=== PATIENT | male | born 1975 | race Caucasian/White ===

== ENCOUNTER 2017-01-30 14:23 | Emergency (ER) | payer MEDICAID ==
[2017-01-30 14:28] VITALS: BP 118/75; BMI 20.9
--- NOTE | 2017-01-30 15:29 | RAD ---
HISTORY: Hand swelling from trauma. Hand was crashed under a pole. Study: Three-view right hand Comparison: No priors Findings: There is a closed, impacted transverse fracture of the d shaft of the right 5th metacarpal with angu lation , convex dorsally. Overlying soft tissue swelling is observed . Remainder of osseous structur es are intact . There is a 2 millimeter metallic foreign body present within the dorsal soft tissues overlying the distal portion of the proximal phalanx of the right middle finger. IMPRESSION: Boxer's fracture of the right 5th metacarpal. This appears to be impacted and angulated but closed. Reported By:
--- NOTE | 2017-01-30 16:01 | DR.GENAD ---
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 swelling noted - Source History Provided: Patient - Mode of Arrival Mode of Arrival: Ambulatory - Timing Onset of Chief Complaint: 01/28/17 PMH - PMH Past Medical History: No Past Surgical History: No - Family History History of Family Medical Conditions: No - Social History Does patient currently use any type of tobacco product: Yes Have you used tobacco products in the last 12 months: Yes Type of Tobacco Use: Cigarettes How many years tobacco product used: 20 Does any household member use tobacco: Yes Alcohol Use: None Do you use any recreational Drugs:: No Lives With: Family Lives Where: Home - infectious screening In the last 2 months have you had wt loss of >10#?: NO Have you had fever, night sweats or hemotysis?: No Have you traveled outside the country in the last 6 months?: No Isolation: Standard ROS - Review of Systems Eyes: No Symptoms Reported ENTM: No Symptoms Reported Respiratoy: No Symptoms Reported Cardiovascular: No Symptoms Reported Gastrointestinal/Abdominal: No Symptoms Reported Genitourinary: No Symptoms Reported Neurological: No Symptoms Reported Musculoskeletal: No Symptoms Reported Integumentary: No Symptoms Reported Hematologic/Lymphatic: No Symptoms Reported Endocrine: No Symptoms Reported Psychiatric: No Symptoms Reported All Other Systems: Reviewed and Negative PE - Vital Signs Vitals: Temperature 98.7 F Pulse Rate 75 Respiratory Rate 16 Blood Pressure 118/75 O2 Sat by Pulse Oximetry 100 - General Limitations: No Limitations General Appearance: Alert - Head Head Exam: Normal Inspection - Eyes Eye exam: Normal Appearance, PERRL, EOMI - ENT ENT Exam: Normal Exam External Ear Exam: Normal External Inspection TM/Canal Exam: Bilateral Normal Nose Exam: Normal Nose Exam Mouth Exam: Normal Inspection Throat Exam: Normal Inspection - Neck Neck Exam: Normal Inspection, Full ROM - Chest Chest Inspection: Normal Inspection - Respiratory Respiratory Exam: Normal Lung Sounds Bilat Respiratory Exam: Bilateral Clear to Auscultation - Cardiovascular Cardiovascular Exam: Regular Rate, Normal Rhythm - Abdominal Exam Abdominal Exam: Normal Inspection, Normal Bowel Sounds Abdominal Tenderness: negative: RUQ, RLQ, LUQ, LLQ, Epigastrium, Suprapubic, Diffuse, Mild, Moderate, Severe, Other - Extremities Extremities Exam: Edema, Other (two areas of tissure puncture dorsum of hand) - Back Back Exam: Normal Inspection, Full ROM - Neurologic Neurological Exam: Alert, Oriented X3, CN II-XII Intact - Psychiatric Psychiatric Exam: Normal Affect, Normal Mood - Skin Skin Exam: Warm, Dry, Intact ROR - XRAY XRAY Interpreted by: Radiologist (There is a closed impacted transverse fracture of the dorsal shaft of the right 5th metarcarpal with angulation, convex dorsally. Overlying soft tissue swelling is observed. Remainder of osseous structures are intact. There is a 2 mm metallic foreign body present within the dorsal soft tissues overlying the distal portion of the proximal phalanx of the right middle finger. Impression: Boxer's fracture of the right 5th metacarpal. This appears to be impacted and angulated but closed.) - Diagnosis Discharge Problem: Boxer's fracture Qualifiers: Encounter type: initial encounter Fracture type: closed Qualified Code(s): S62.309A - Unspecified fracture of unspecified metacarpal bone, initial encounter for closed fracture - Discharge Plan Condition: Stable - Follow ups/Referrals Follow ups/Referrals: NFD,None [Primary Care Provider] - 3 days - Instructions
== END 2017-01-30 16:28 | disposition home or self-care (01) ==
LOC: ER 14:23
DX: S62.309A Unspecified fracture of unspecified metacarpal bone, initial encounter for closed fracture (principal); Y33.XXXA Other specified events, undetermined intent, initial encounter; Y92.9 Unspecified place or not applicable
CPT/HCPCS: 73130; 99282

== ENCOUNTER 2017-03-22 15:25 | Emergency (ER) | payer MEDICAID, OTHER ==
[2017-03-22 15:37] VITALS: BP 112/71; BMI 22.3
--- NOTE | 2017-03-22 16:06 | DR.EXTPAIN ---
HPI - Time seen Time seen: 03:55 - PCP Primary Care Physician: NFD - Complaint/Symptoms Chief Complaint:: PT C/O SWELLING TO HIS LLE THAT STARTED A FEW DAYS AGO AND AND PT THINKS IT MAY BE A SPIDER BITE.. Self Treatment fo Chief Complaint: ASPERCREAM - Source History Provided: Patient - Mode of arrival Mode of Arrival: Ambulatory - Timing Onset of Chief Complaint: 03/19/17 PMH - PMH Past Medical History: No Past Surgical History: No - Family History History of Family Medical Conditions: No - Social History Does patient currently use any type of tobacco product: Yes Have you used tobacco products in the last 12 months: Yes Type of Tobacco Use: Cigarettes How many years tobacco product used: 23 Does any household member use tobacco: No Alcohol Use: None Do you use any recreational Drugs:: No Lives With: Family Lives Where: Home - infectious screening In the last 2 months have you had wt loss of >10#?: NO Have you had fever, night sweats or hemotysis?: No Have you traveled outside the country in the last 6 months?: No Isolation: Standard ROS - Review of Systems Eyes: No Symptoms Reported ENTM: No Symptoms Reported Respiratoy: No Symptoms Reported Cardiovascular: No Symptoms Reported Gastrointestinal/Abdominal: No Symptoms Reported Genitourinary: No Symptoms Reported Neurological: No Symptoms Reported Musculoskeletal: No Symptoms Reported Integumentary: Change in Color, Lesions (erythema, multiple bites) Hematologic/Lymphatic: No Symptoms Reported Endocrine: No Symptoms Reported Psychiatric: No Symptoms Reported All Other Systems: Reviewed and Negative PE - Vital Signs Vitals: Temperature 98.1 F Pulse Rate 91 Respiratory Rate 22 Blood Pressure 112/71 O2 Sat by Pulse Oximetry 99 - General Limitations: No Limitations General Appearance: Alert, In No Apparent Distress - Head Head Exam: Normal Inspection, Atraumatic - Eyes Eye exam: Normal Appearance, PERRL, EOMI - ENT ENT Exam: Normal Exam - Neck Neck Exam: Normal Inspection, Full ROM - Chest Chest Inspection: Normal Inspection - Respiratory Respiratory Exam: Normal Lung Sounds Bilat Respiratory Exam: Bilateral Clear to Auscultation - Cardiovascular Cardiovascular Exam: Regular Rate, Normal Rhythm - Abdominal Exam Abdominal Exam: Normal Inspection Abdominal Tenderness: negative: RUQ, RLQ, LUQ, LLQ, Epigastrium, Suprapubic, Diffuse, Mild, Moderate, Severe, Other - Extremities Extremities Exam: negative: Normal Inspection, Full ROM, Tenderness, Normal Capillary Refill, Edema, Joint Swelling, Calf Tenderness, Other - Upper Extremities Shoulder Exam: Normal Inspection Arm Exam: Normal Inspection Elbow Exam: Normal Inspection Forearm Exam: Normal Inspection Hand Exam: Normal Inspection Neuromotor Exam: Normal Exam Neurosensory Exam: Normal Exam Hand Tendon Exam: Flexor Digitorium Profundus (Location) Upper Ext. Vascular Exam: Capillary Refill - Lower Extremities Hip/Pelvis Exam: Normal Inspection Upper Leg Exam: Normal Inspection Knee Exam: Normal Inspection Lower Leg Exam: Tenderness, Erythema, Other (multiple insect bites LLE) Ankle Exam: Swelling Foot/Toe Exam: Normal Inspection Neurovascular/Tendon Exam: Normal Capillary Refill Gait Exam: Observed and Normal - Back Back Exam: Normal Inspection, Full ROM - Neurological Neurological Exam: Alert, Oriented X3, CN II-XII Intact - Psychiatric Psychiatric Exam: Normal Affect - Skin Skin Exam: Warm, Dry, Intact Type of Lesion: Bite/Sting Distribution: LLE Description: Indurated ROR - Labs Reviewed Result Diagrams: 03/22/17 16:22 Laboratory: WBC 4.3 X10^3/uL (3.6-10.0) 03/22/17 16:22 RBC 5.39 X10^6/uL (4.7-6.0) 03/22/17 16:22 Hgb 15.7 g/dL (13.5-18.0) 03/22/17 16:22 Hct 46.8 % (42.0-54.0) 03/22/17 16:22 MCV 86.8 fL (80.0-100.0) 03/22/17 16:22 MCH 29.1 pg (27.0-34.0) 03/22/17 16:22 MCHC 33.5 g/dL (33.0-35.0) 03/22/17 16:22 RDW 14.9 % (11.6-16.5) 03/22/17 16:22 Plt Count 259 X10^3/uL (150.0-450.0) 03/22/17 16:22 MPV 8.4 fL (7.4-11.0) 03/22/17 16:22 Neut % 55.8 % (42.0-75.0) 03/22/17 16:22 Lymph % 26.7 % (21.0-51.0) 03/22/17 16:22 [place] % 11.3 % (0.0-13.0) 03/22/17 16:22 Eos % 4.8 % (0.9-2.9) H 03/22/17 16:22 Baso % 1.4 % (0.2-1.0) H 03/22/17 16:22 Neut # 2.4 x10^3/uL (2.2-4.8) 03/22/17 16:22 Lymph # 1.2 X10^3/uL (1.3-2.9) L 03/22/17 16:22 [place] # 0.5 x10^3/uL (0.3-0.8) 03/22/17 16:22 Eos # 0.2 x10^3/uL (0.0-0.2) 03/22/17 16:22 Baso # 0.1 X10^3/uL (0.0-0.1) 03/22/17 16:22 Absolute Nucleated RBC 0.0 /100WBC 03/22/17 16:22 - Diagnosis Discharge Problem: Cellulitis of left lower leg Insect bites Qualifiers: Encounter type: initial encounter Qualified Code(s): W57.XXXA - Bitten or stung by nonvenomous insect and other nonvenomous arthropods, initial encounter - Discharge Plan Condition: Stable - Follow ups/Referrals Follow ups/Referrals: NFD,None [Primary Care Provider] - 3 days - Instructions
[2017-03-22 16:42] LABS: BASOPHILS # (AUTO) 0.1 X10^3/uL (0.0-0.1); BASOPHILS % (AUTO) 1.4 % (0.2-1.0); EOSINOPHILS # (AUTO) 0.2 x10^3/uL (0.0-0.2); EOSINOPHILS % (AUTO) 4.8 % (0.9-2.9); HEMATOCRIT 46.8 % (42.0-54.0); HEMOGLOBIN 15.7 g/dL (13.5-18.0); LYMPHOCYTES # (AUTO) 1.2 X10^3/uL (1.3-2.9); LYMPHOCYTES % (AUTO) 26.7 % (21.0-51.0); MEAN CORPUSCULAR HEMOGLOBIN 29.1 pg (27.0-34.0); MEAN CORPUSCULAR HGB CONC 33.5 g/dL (33.0-35.0); MEAN CORPUSCULAR VOLUME 86.8 fL (80.0-100.0); MEAN PLATELET VOLUME 8.4 fL (7.4-11.0); MONOCYTES # (AUTO) 0.5 x10^3/uL (0.3-0.8); MONOCYTES % (AUTO) 11.3 % (0.0-13.0); NEUTROPHILS # (AUTO) 2.4 x10^3/uL (2.2-4.8); NEUTROPHILS % (AUTO) 55.8 % (42.0-75.0); PLATELET COUNT 259 X10^3/uL (150.0-450.0); RED BLOOD COUNT 5.39 X10^6/uL (4.7-6.0); RED CELL DISTRIBUTION WIDTH 14.9 % (11.6-16.5); WHITE BLOOD COUNT 4.3 X10^3/uL (3.6-10.0)
[2017-03-22] MEDS ORDERED: ROCEPHIN VIAL 1 GM IM ONE (17:26)
[2017-03-22] MEDS ORDERED: ROCEPHIN VIAL 1 GM ONE (17:27)
[2017-03-22] MEDS ORDERED: XYLOCAINE 1 % (PLAIN) ONE (17:27)
== END 2017-03-22 17:43 | disposition home or self-care (01) ==
LOC: ER 15:34
DX: L03.116 Cellulitis of left lower limb (principal); W57.XXXA Bitten or stung by nonvenomous insect and other nonvenomous arthropods, initial encounter
CPT/HCPCS: 36415; 85025; 96372; 99282; J0696; J2001

== ENCOUNTER 2019-04-09 11:34 | Inpatient (IN) ==
[2019-04-09 11:45] VITALS: BMI 20.7
[2019-04-09] MEDS ORDERED: NS 1000 ML 1,000 ML IV ONE (11:47)
--- NOTE | 2019-04-09 11:50 | DR.ABDMALE ---
HPI - Time seen Time seen: 11:47 - PCP Primary Care Physician: chetan - HPI comment HPI Comment: He developed abd pain without n/v/d after eating a jelly doughnut a little while ago; he has felt like going to the bathroom but "forced himself" to hold it; he was outside working but has eaten and had something to drink; no cp,palpitations, sob, dysuria, hematuria,cough or headache or dizziness. He last did meth last night and denies etoh. - Complaint Chief Complaint:: patient stated he was at work and started having abd pain real bad. pt mumbles and wont open his eyes but answers questions. pt stated he did meth last night - Reviewed Nurses Notes Review: Yes - Mode of arrival Mode of Arrival: Wheelchair - Timing Onset of Chief Complaint: 04/09/19 - Location Location: Diffuse - Associated signs and symptoms Associated Signs and Symptoms: None PMH - PMH Past Medical History: No Past Surgical History: No - Family History History of Family Medical Conditions: No - Social History Does patient currently use any type of tobacco product: No Have you used tobacco products in the last 12 months: No Type of Tobacco Use: None Does any household member use tobacco: No Alcohol Use: None Do you use any recreational Drugs:: Yes (meth) Lives With: Family Lives Where: Home - infectious screening In the last 2 months have you had wt loss of >10#?: NO Have you had fever, night sweats or hemotysis?: No Have you traveled outside the country in the last 6 months?: No Isolation: Standard ROS - Review of Systems Constitutional: Malaise, Weakness Eyes: No Symptoms Reported ENTM: No Symptoms Reported Respiratoy: No Symptoms Reported Gastrointestinal/Abdominal: See HPI, Abdominal Pain Genitourinary: No Symptoms Reported Neurological: No Symptoms Reported Musculoskeletal: No Symptoms Reported Integumentary: No Symptoms Reported Hematologic/Lymphatic: No Symptoms Reported Endocrine: No Symptoms Reported Psychiatric: No Symptoms Reported PE - General Limitations: No Limitations General Appearance: Alert, In No Apparent Distress (will not open eyes but answers questions; appears to be in pain) - Head Head Exam: Normal Inspection, Atraumatic, Normocephalic - Neck Neck Exam: Normal Inspection, Full ROM, Trachea Midline - Chest Chest Inspection: Normal Inspection, Symmetric Chest Wall Rise - Respiratory Respiratory Exam: Normal Lung Sounds Bilat Respiratory Exam: Bilateral Clear to Auscultation - Cardiovascular Cardiovascular Exam: Regular Rate, Normal Rhythm - Abdominal Exam Abdominal Exam: Normal Inspection, Normal Bowel Sounds, Soft Abdominal Tenderness: negative: RUQ, RLQ, LUQ, LLQ, Epigastrium, Suprapubic, Diffuse, Mild, Moderate, Severe, Other - Back Back Exam: Normal Inspection, Full ROM - Extremeties Extremities Exam: Normal Inspection - Neurologic Neurological Exam: Alert, Oriented X3, CN II-XII Intact - Psychiatric Psychiatric Exam: Other (appears to be in pain) - Skin Skin Exam: Warm, Dry - Vital Signs Vital Signs: Temp Pulse Resp BP Pulse Ox 04/09/19 12:00 18 04/09/19 11:42 102.5 F H 130 H 16 80/55 98 03/22/17 15:29 112/71 [facility] - Differential Diagnosis Differential Diagnosis: Gastritus/PUD, Gastroenteritis, Hepatitis, Pancreatitis, Urinary tract infection Course - Reevaluation 1st: Improved (eyes open, engaging in conversation) - Consultation Consultation Comments: s/w Dr Neff who accepts admission ROR - Labs Reviewed Result Diagrams: 04/09/19 11:40 04/09/19 11:40 - XRAY XRAY Interpreted by: Radiologist (abd series constipation only) - Labs Reviewed Laboratory: WBC 2.0 X10^3/uL (3.6-10.0) L 04/09/19 11:40 RBC 4.93 X10^6/uL (4.7-6.0) 04/09/19 11:40 Hgb 14.8 g/dL (13.5-18.0) 04/09/19 11:40 Hct 43.9 % (42.0-54.0) 04/09/19 11:40 MCV 89.2 fL (80.0-100.0) 04/09/19 11:40 MCH 30.0 pg (27.0-34.0) 04/09/19 11:40 MCHC 33.7 g/dL (33.0-35.0) 04/09/19 11:40 RDW 13.7 % (11.6-16.5) 04/09/19 11:40 Plt Count 172 X10^3/uL (150.0-450.0) 04/09/19 11:40 Plt Count Comment Adequate (ADEQUATE) 04/09/19 11:40 MPV 7.8 fL (7.4-11.0) 04/09/19 11:40 Neut % (Auto) 94.2 % (42.0-75.0) H 04/09/19 11:40 Lymph % (Auto) 4.7 % (21.0-51.0) L 04/09/19 11:40 [place] % (Auto) 0.5 % (0.0-13.0) 04/09/19 11:40 Eos % (Auto) 0.3 % (0.9-2.9) L 04/09/19 11:40 Baso % (Auto) 0.3 % (0.2-1.0) 04/09/19 11:40 Neut # (Auto) 1.8 x10^3/uL (2.2-4.8) L 04/09/19 11:40 Lymph # (Auto) 0.1 X10^3/uL (1.3-2.9) L 04/09/19 11:40 [place] # (Auto) 0 x10^3/uL (0.3-0.8) L 04/09/19 11:40 Eos # (Auto) 0.0 x10^3/uL (0.0-0.2) 04/09/19 11:40 Baso # (Auto) 0.0 X10^3/uL (0.0-0.1) 04/09/19 11:40 Absolute Nucleated RBC 0.8 /100WBC 04/09/19 11:40 Total Counted 100 04/09/19 11:40 Neutrophils % (Manual) 81 % (39-76) H 04/09/19 11:40 Band Neutrophils % 5 % (0-10) 04/09/19 11:40 Lymphocytes % (Manual) 7 % (13-43) L 04/09/19 11:40 Monocytes % (Manual) 6 % (4-9) 04/09/19 11:40 Eosinophils % (Manual) 1 % (0-6) 04/09/19 11:40 Plt Morphology Comment Normal (NORMAL) 04/09/19 11:40 RBC Morphology Normal (NORMAL) 04/09/19 11:40 Sodium 142 mmol/L (136-145) 04/09/19 11:40 Corrected Sodium TNP 04/09/19 11:40 Potassium 3.7 mmol/L (3.5-5.1) 04/09/19 11:40 Chloride 106 mmol/L (98-107) 04/09/19 11:40 Carbon Dioxide 24.8 mmol/L (21-32) 04/09/19 11:40 BUN 19 mg/dL (7-18) H 04/09/19 11:40 Creatinine 1.86 mg/dL (0.70-1.30) H 04/09/19 11:40 Est GFR (MDRD) Af Amer 52 (>60) L 04/09/19 11:40 Est GFR (MDRD) Non-Af 43 (>60) L 04/09/19 11:40 Glucose 100 mg/dL (65-99) H 04/09/19 11:40 Lactic Acid 3.5 mmol/L (0.4-2.0) H 04/09/19 11:40 Calcium 8.4 mg/dL (8.5-10.1) L 04/09/19 11:40 Corrected Calcium 9.0 mg/dL (8.5-10.1) 04/09/19 11:40 Total Bilirubin 1.60 mg/dL (0.2-1.0) H 04/09/19 11:40 AST 162 Units/L (15-37) H 04/09/19 11:40 ALT 132 Units/L (12-78) H 04/09/19 11:40 Alkaline Phosphatase 121 Units/L (46-116) H 04/09/19 11:40 Total Protein 5.7 g/dL (6.4-8.2) L 04/09/19 11:40 Albumin 3.3 g/dL (3.4-5.0) L 04/09/19 11:40 Globulin 2.4 g/dL (2.5-4.5) L 04/09/19 11:40 Albumin/Globulin Ratio 1.4 Ratio (1.1-2.1) 04/09/19 11:40 Amylase 71 Units/L (25-115) 04/09/19 11:40 Lipase 572 Units/L (73-393) H 04/09/19 11:40 Opioid - Opioid Risk Tool Personal Hx of Substance Abuse: Illegal Drugs Age (Albin box if 16-45): Yes Total: 1 Total Score Risk Category: Low Risk - Diagnosis Discharge Problem: Pancreatitis - Discharge Plan Disposition: 09 ADMITTED INPATIENT Condition: Stable
[2019-04-09] MEDS ORDERED: TORADOL 15 MG VIAL IVP STA (11:55)
[2019-04-09 11:59] LABS: BASOPHILS % (AUTO) 0.3 % (0.2-1.0); EOSINOPHILS % (AUTO) 0.3 % (0.9-2.9); HEMATOCRIT 43.9 % (42.0-54.0); HEMOGLOBIN 14.8 g/dL (13.5-18.0); LYMPHOCYTES # (AUTO) 0.1 X10^3/uL (1.3-2.9); LYMPHOCYTES % (AUTO) 4.7 % (21.0-51.0); MEAN CORPUSCULAR HGB CONC 33.7 g/dL (33.0-35.0); MEAN CORPUSCULAR VOLUME 89.2 fL (80.0-100.0); MEAN PLATELET VOLUME 7.8 fL (7.4-11.0); MONOCYTES # (AUTO) 0 x10^3/uL (0.3-0.8); MONOCYTES % (AUTO) 0.5 % (0.0-13.0); NEUTROPHILS # (AUTO) 1.8 x10^3/uL (2.2-4.8); NEUTROPHILS % (AUTO) 94.2 % (42.0-75.0); PLATELET COUNT 172 X10^3/uL (150.0-450.0); RED BLOOD COUNT 4.93 X10^6/uL (4.7-6.0); RED CELL DISTRIBUTION WIDTH 13.7 % (11.6-16.5)
[2019-04-09] MEDS ORDERED: TORADOL 15 MG VIAL ONE (12:01)
[2019-04-09 12:05] LABS: ALANINE AMINOTRANSFERASE 132 Units/L (12-78); ALBUMIN 3.3 g/dL (3.4-5.0); ALKALINE PHOSPHATASE 121 Units/L (46-116); ASPARTATE AMINO TRANSFERASE 162 Units/L (15-37); BLOOD UREA NITROGEN 19 mg/dL (7-18); CALCIUM 8.4 mg/dL (8.5-10.1); CARBON DIOXIDE 24.8 mmol/L (21-32); CHLORIDE 106 mmol/L (98-107); CREATININE 1.86 mg/dL (0.70-1.30); SODIUM 142 mmol/L (136-145); TOTAL PROTEIN 5.7 g/dL (6.4-8.2); eGFR NON BLACK RACES 43 (>60)
[2019-04-09 12:09] LABS: LACTIC ACID 3.5 mmol/L (0.4-2.0)
[2019-04-09 12:11] LABS: BAND NEUTROPHILS % 5 % (0-10); PLATELET MORPHOLOGY COMMENT NORMAL (NORMAL)
[2019-04-09 12:16] LABS: AMYLASE 71 Units/L (25-115); LIPASE 572 Units/L (73-393)
--- NOTE | 2019-04-09 12:33 | RAD ---
HISTORY: Abdominal Pain Study: Frontal view of the chest, flat and upright views of the abdomen Comparison: None. Findings: Cardiomediastinal silhouette is normal in size. No focal consolidations, pleural effusions or pneumothorax. Osseous structures are without acute abnormality. Flat and upright views of the abdomen demonstrates a large amount stool in the colon. No evidence of obstruction. No free air. No abnormal calcifications or abnormal soft tissue shadows. No acute bony abnormalities. IMPRESSION: 1. No acute cardiopulmonary disease. 2. Findings of constipation. Reported By:
[2019-04-09] MEDS ORDERED: NS 1000 ML 1,000 ML ONE (12:55)
[2019-04-09] MEDS: NS 1000 ML 1,000 ML IV SCH ×2 (12:56→20:59)
[2019-04-09] MEDS ORDERED: LEVAQUIN PREMIX IV 500 MG 500 MG/100 ML BAG IV ONE (13:09)
[2019-04-09] MEDS ORDERED: ZOSYN VIAL 3.375 GRAMS 3.375 G in NS 100 ML IV + SPIKE MINIBAG* 100 ML IV ONE (13:10)
[2019-04-09] MEDS ORDERED: LEVAQUIN PREMIX IV 500 MG 500 MG/100 ML BAG ONE (13:21)
[2019-04-09] MEDS ORDERED: MORPHINE SULFATE INJ 2 MG INJ IVP PRN (14:32)
[2019-04-09] MEDS ORDERED: MILK OF MAGNESIA PO PRN (14:32)
[2019-04-09] MEDS ORDERED: ZOFRAN INJ 4 MG VIAL IVP PRN (14:32)
[2019-04-09 19:43] LABS: BILIRUBIN,URINE NEGATIVE (NEGATIVE); BLOOD/HEMOGLOBIN,URINE 2+ (NEGATIVE); GLUCOSE, URINE NEGATIVE (NEGATIVE); KETONES,URINE NEGATIVE (NEGATIVE); LEUKOCYTE ESTERASE ,URINE NEGATIVE (NEGATIVE); NITRITES,URINE NEGATIVE (NEGATIVE); PROTEIN,URINE 1+ (NEGATIVE); UROBILINOGEN,URINE 3+ (NORMAL)
[2019-04-09 19:56] LABS: AMORPHOUS SEDIMENT,UR TRACE /HPF (NEGATIVE); APPEARANCE,URINE CLEAR (CLEAR); BACTERIA,URINE NEGATIVE /HPF (NEGATIVE); CALCIUM OXALATE CRYSTALS,UR RARE /HPF (NEGATIVE); COLOR,URINE AMBER (YELLOW); HYALINE CASTS, URINE RARE /LPF (NEGATIVE); SQUAMOUS EPITHELIAL CELL,UR RARE /HPF (NEGATIVE)
[2019-04-09 19:57] LABS: MUCUS,URINE FEW /HPF (NEGATIVE); SPERM,URINE FEW /HPF (NEGATIVE)
[2019-04-09] MEDS ORDERED: NS 100 ML IV + SPIKE MINIBAG* 100 ML ONE (20:44)
[2019-04-09] MEDS: ZOSYN VIAL 3.375 GRAMS IV SCH (20:59)
[2019-04-09 21:55] LABS: AMYLASE 46 Units/L (25-115); LIPASE 157 Units/L (73-393)
[2019-04-10] MEDS: NS 1000 ML 1,000 ML IV SCH ×3 (05:13→21:00)
[2019-04-10 05:34] LABS: BASOPHILS % (AUTO) 0 % (0.2-1.0); HEMATOCRIT 41.3 % (42.0-54.0); HEMOGLOBIN 14.1 g/dL (13.5-18.0); LYMPHOCYTES # (AUTO) 0.4 X10^3/uL (1.3-2.9); LYMPHOCYTES % (AUTO) 2.5 % (21.0-51.0); MEAN CORPUSCULAR HEMOGLOBIN 30.3 pg (27.0-34.0); MEAN CORPUSCULAR HGB CONC 34.1 g/dL (33.0-35.0); MEAN CORPUSCULAR VOLUME 88.9 fL (80.0-100.0); MEAN PLATELET VOLUME 8.8 fL (7.4-11.0); MONOCYTES # (AUTO) 0.7 x10^3/uL (0.3-0.8); MONOCYTES % (AUTO) 4.5 % (0.0-13.0); NEUTROPHILS # (AUTO) 14.7 x10^3/uL (2.2-4.8); PLATELET COUNT 146 X10^3/uL (150.0-450.0); RED BLOOD COUNT 4.65 X10^6/uL (4.7-6.0); RED CELL DISTRIBUTION WIDTH 13.7 % (11.6-16.5)
[2019-04-10] MEDS ORDERED: NS 100 ML IV + SPIKE MINIBAG* 100 ML ONE ×3 (05:36→20:30)
[2019-04-10 05:44] LABS: ALANINE AMINOTRANSFERASE 299 Units/L (12-78); ALBUMIN 2.7 g/dL (3.4-5.0); ALKALINE PHOSPHATASE 92 Units/L (46-116); ASPARTATE AMINO TRANSFERASE 180 Units/L (15-37); BLOOD UREA NITROGEN 21 mg/dL (7-18); CALCIUM 7.8 mg/dL (8.5-10.1); CARBON DIOXIDE 23.5 mmol/L (21-32); CHLORIDE 106 mmol/L (98-107); COR CA(FOR HYPOALB) 8.8 mg/dL (8.5-10.1); SODIUM 139 mmol/L (136-145); TOTAL PROTEIN 5.5 g/dL (6.4-8.2); eGFR NON BLACK RACES 59 (>60)
[2019-04-10 06:10] LABS: WHITE BLOOD COUNT 15.8 X10^3/uL (3.6-10.0)
[2019-04-10 06:11] LABS: BAND NEUTROPHILS % 23 % (0-10); PLATELET MORPHOLOGY COMMENT NORMAL (NORMAL)
[2019-04-10 06:13] LABS: LACTIC ACID 1.2 mmol/L (0.4-2.0)
[2019-04-10] MEDS: ZOSYN VIAL 3.375 GRAMS IV SCH ×3 (06:34→21:00)
[2019-04-10] MEDS: LEVAQUIN PREMIX IV 500 MG 500 MG/100 ML BAG IV SCH (09:01)
[2019-04-10] MEDS: MILK OF MAGNESIA PO SCH ×4 (10:52→20:58)
[2019-04-10] MEDS: COLACE CAP 100 MG PO SCH ×2 (10:52→20:47)
[2019-04-10] MEDS: MIRALAX POWDER (1 DOSE 17 G) PO SCH (10:55)
[2019-04-11] MEDS: NS 1000 ML 1,000 ML IV SCH (04:39)
[2019-04-11 05:23] LABS: BASOPHILS % (AUTO) 0.1 % (0.2-1.0); EOSINOPHILS # (AUTO) 0.1 x10^3/uL (0.0-0.2); EOSINOPHILS % (AUTO) 0.6 % (0.9-2.9); HEMATOCRIT 40.7 % (42.0-54.0); HEMOGLOBIN 13.8 g/dL (13.5-18.0); LYMPHOCYTES # (AUTO) 1.1 X10^3/uL (1.3-2.9); LYMPHOCYTES % (AUTO) 8.1 % (21.0-51.0); MEAN CORPUSCULAR HEMOGLOBIN 30.2 pg (27.0-34.0); MEAN CORPUSCULAR HGB CONC 33.9 g/dL (33.0-35.0); MEAN PLATELET VOLUME 9.1 fL (7.4-11.0); MONOCYTES # (AUTO) 0.8 x10^3/uL (0.3-0.8); NEUTROPHILS # (AUTO) 11.1 x10^3/uL (2.2-4.8); NEUTROPHILS % (AUTO) 85.2 % (42.0-75.0); PLATELET COUNT 128 X10^3/uL (150.0-450.0); RED BLOOD COUNT 4.57 X10^6/uL (4.7-6.0); RED CELL DISTRIBUTION WIDTH 14.2 % (11.6-16.5); WHITE BLOOD COUNT 13.1 X10^3/uL (3.6-10.0)
[2019-04-11 05:30] LABS: ALANINE AMINOTRANSFERASE 183 Units/L (12-78); ALBUMIN 2.3 g/dL (3.4-5.0); ALKALINE PHOSPHATASE 80 Units/L (46-116); ASPARTATE AMINO TRANSFERASE 75 Units/L (15-37); BLOOD UREA NITROGEN 16 mg/dL (7-18); CALCIUM 7.8 mg/dL (8.5-10.1); CARBON DIOXIDE 25.2 mmol/L (21-32); CHLORIDE 108 mmol/L (98-107); COR CA(FOR HYPOALB) 9.2 mg/dL (8.5-10.1); CREATININE 1.08 mg/dL (0.70-1.30); SODIUM 139 mmol/L (136-145); TOTAL PROTEIN 5.2 g/dL (6.4-8.2); eGFR NON BLACK RACES > 60 (>60)
[2019-04-11] MEDS ORDERED: NS 100 ML IV + SPIKE MINIBAG* 100 ML ONE (05:47)
[2019-04-11] MEDS: ZOSYN VIAL 3.375 GRAMS IV SCH (05:56)
[2019-04-11 08:32] VITALS: BP 116/69
[2019-04-11] MEDS: LEVAQUIN PREMIX IV 500 MG 500 MG/100 ML BAG IV SCH (09:18)
[2019-04-11] MEDS: COLACE CAP 100 MG PO SCH (09:18)
[2019-04-11] MEDS: MILK OF MAGNESIA PO SCH (09:19)
[2019-04-11] MEDS: MIRALAX POWDER (1 DOSE 17 G) PO SCH (09:19)
--- NOTE | 2019-04-11 13:47 | DR.H&P ---
H&P - History & Physical for Day of: H&P Date: 04/09/19 - Chief Complaint Chief Complaint: ABDOMINAL PAIN - History of Present Illness History of Present Illness: IS A 43 YEAR OLD WHITE MALE WHO PRESENTED TO THE ER WITH REPORTS OF ABDOMINAL PAIN. ON ARRIVAL TO THE ER, PATIENT WAS NOTED TO BE MUMBLING AND DROWSINESS, BUT HE DID ANSWER QUESTIONS APPROPRIATELY. HE ADMITS TO USING METH LAST NIGHT, BUT DENIES ETOH. HE DENIES NAUSEA, VOMITING, OR DIARRHEA. HE DESCRIBES PAIN ALL OVER AND SEVERE. ON ARRIVAL TO THE ER, VITALS WERE 102.5-130-16-98%-80/55. LABS WERE OBTAINED. ABNORMAL LAB VALUES INCLUDE THE FOLLOWING: LABS WERE OBTAINED. ABNORMAL LAB VALUES INCLUDE THE FOLLOWING: WBC 2.0, BUN 19, CREATININE 1.86, GLUCOSE 100, LACTIC ACID 3.5, CALCIUM 8.4, TOTAL BILI 1.60, AST 162, ALT 132, ALK PHOS 121, TOTAL PROTEIN 5.7, ALBUMIN 3.3, GLOBULIN 2.4, LIPASE 572. URINALYSIS REVEALED: WBC 0-2, RBC 3-5, LEUKOCYTES NEGATIVE, BACTERIA NEGATIVE, OCCULT BLOOD 2+, PROTEIN 1+. HEPATITIS PANEL PENDING. BLOOD CULTURES WERE OBTAINED. AN ABDOMEN XRAY WAS OBTAINED AND REVEALED: FINDINGS OF CONSTIPATION, NO ACUTE CARDIOPULMONARY DISEASE. EKG WAS OBTAINED AND REVEALED: SINUS TACHYCARDIA WITH HR 107. WE ADMITTED PATIENT FOR FURTHER EVALUATION AND TREATMENT OF ABDOMINAL PAIN, SEPSIS, DEHYDRATION, AND ACUTE RENAL FAILURE. HE WAS STARTED ON NORMAL SALINE AT 125ML/HR, IV ZOSYN, AND IV LEVAQUIN. WE WILL START MILK OF MAGNESIA, COLACE, AND MIRALAX. OTHERWISE, WE PLAN TO FOLLOW UP WITH AM LABS AND CONTINUE TO MONITOR. - Past Surgical History Surgical History: Other - Family History Family Medical History: Diabetes Mellitus, Cancer - Social History Does patient currently use any type of tobacco product: Yes Have you used tobacco products in the last 12 months: Yes Type of Tobacco Use: Cigarettes How many years tobacco product used: 25 Does any household member use tobacco: No Alcohol Use: None Drug Use: Methamphetamine - Medications Home Medications: No Known Drug Allergies Allergy (Verified 04/09/19 11:46) CONTINUE taking the following medications No Home Medication 1 % NA DAILY 04/11/19 [History] New Prescriptions amoxicillin-pot clavulanate [Augmentin] 1 tab PO BID #28 tab 04/11/19 [Rx] - Review of Systems Constitutional: Fever, Chills, Weakness Eyes: No Symptoms Reported ENT: No Symptoms Reported Respiratory: No Symptoms Reported Cardiovascular: No Symptoms Reported Gastrointestinal: Abdominal Pain, Constipation. denies: Nausea, Vomiting, Diarrhea Genitourinary: No Symptoms Reported Musculoskeletal: No Symptoms Reported Skin: No Symptoms Reported - Physical Exam Vital Signs: Temperature 97.6 F Pulse Rate [Left Brachial] 79 Pulse Rate 64 Respiratory Rate 20 Blood Pressure [Left Arm] 116/69 Blood Pressure [Right Arm] 134/57 Blood Pressure 134/57 O2 Sat by Pulse Oximetry 98 Oriented: Normal Eyes: Normal Ear: Normal Nose: Normal Throat: Normal Respiratory: Diminished Throughout Cardiovascular: Tachycardia. negative: S3, S4, Murmur, Edema : Normal Auscultation: Bowel Sounds: Normal Palpation: Normal Tenderness: Diffuse, Severe. negative: Rebound, Guarding, Rigidity Skin: Normal Musculoskeletal: Normal Psychiatric: Normal Mood Description: Calm Affect: Normal Speech Pattern: Clear - Assessment/Plan (1) Sepsis Qualifiers: Sepsis type: sepsis due to unspecified organism Sepsis acute organ dysfunction status: with acute organ dysfunction Severe sepsis acute organ dysfunction type: acute renal failure Acute renal failure type: unspecified Severe sepsis shock status: unspecified Qualified Code(s): A41.9 - Sepsis, unspecified organism; R65.20 - Severe sepsis without septic shock; N17.9 - Acute kidney failure, unspecified Status: Acute Plan: ADMIT, IV FLUIDS, IV ZOSYN, IV LEVAQUIN, CONTINUE TO MONITOR (2) Abdominal pain Qualifiers: Abdominal location: generalized Qualified Code(s): R10.84 - Generalized abdominal pain Status: Acute Plan: BOWEL REGIMEN, IV MORPHINE, IV ZOFRAN, CONTINUE TO MONITOR (3) Dehydration Status: Acute Plan: NORMAL SALINE AT 125ML/HR, CONTINUE TO MONITOR (4) Acute renal failure (ARF) Qualifiers: Acute renal failure type: unspecified Qualified Code(s): N17.9 - Acute kidney failure, unspecified Status: Acute Plan: NORMAL SALINE AT 125ML/HR, CONTINUE TO MONITOR - Allergies Allergies/Adverse Reactions: Allergies Allergy/AdvReac Type Severity Reaction Status Date / Time No Known Drug Allergies Allergy Verified 04/09/19 11:46
[2019-04-13 06:55] LABS: HEPATITIS B SURFACE ANTIGEN Positive (Negative)
== END 2019-04-11 14:20 | disposition home or self-care (01) | DRG 438 ==
LOC: ER 11:34 → MED/SURG 13:11
PROVIDERS: ADMIT Internal Medicine; ATTEND Internal Medicine
DX: A41.9 Sepsis, unspecified organism; F15.90 Other stimulant use, unspecified, uncomplicated; E86.0 Dehydration; N19 Unspecified kidney failure; R10.84 Generalized abdominal pain; K85.90 Acute pancreatitis without necrosis or infection, unspecified; K59.09 Other constipation; R65.20 Severe sepsis without septic shock
CPT/HCPCS: 36415; 74022; 80053; 80074; 80307; 81001; 82150; 83605; 83690; 85025; 86701; 86703; 87040; 87389; 93005; 96365; 96374; 96375; 99284; A4222; G0434; J1885; J1956; J2543; J7030; J7050